=== PATIENT | female | born 1970 ===

== ENCOUNTER 2021-10-06 09:19 | Outpatient (CLI) | payer MEDICARE, MEDICAID, SELFPAY ==
--- NOTE | 2021-10-06 06:00 | DI.RAD_ITS ---
Exam(s) XR PAIN CLINIC FLUORO JOINT IN EXAM: XR PAIN CLINIC FLUORO JOINT IN CLINICAL HISTORY: Dx: Osteoarthritis of the knee TECHNIQUE: 2D and realtime digital imaging was performed. Radiologist not present. CONTRAST MATERIAL: None. COMPARISON: No exams were available for comparison FINDINGS: Fluoroscopy was provided for left knee therapy procedure. See procedure report for details. Cumulative dose: Ka,r=0.90 mGy IMPRESSION: RADIATION DOSE DELIVERED:
[2021-10-06 09:42] VITALS: BP 146/96; PULSE 81; RESP 18; TEMP 37; O2SAT 96
[2021-10-06] MEDS: Lactated Ringers 1,000 ML 80 ML IV (10:14)
[2021-10-06] MEDS: fentaNYL 100 MCG/2 ML VIAL IVP (10:21)
[2021-10-06] MEDS: Midazolam 2 MG/2 ML VIAL IVP (10:22)
[2021-10-06 10:52] VITALS: BP 146/80; PULSE 89; RESP 13; O2SAT 97
[2021-10-06] MEDS: Bupivacaine 0.5% Pres-Free 10 ML VIAL IJ (10:55)
[2021-10-06] MEDS: Lidocaine 2% Pres-Free 5 ML VIAL IJ (10:56)
[2021-10-06] MEDS: methylPREDNISolone ACETATE 40 MG/ML VIAL IJ (10:56)
--- NOTE | 2021-10-06 12:36 | PDOC.PAIN ---
Pain Clinic Procedure Note Procedure Note Procedure Note: LEFT GENICULAR NERVE RADIOFREQUENCY ABLATION WITH THE COOLIEF MACHINE Date of Service: October 06, 2021 Patient: Toya Nettles Provider: Navi Ngo DO, MPH Pre-operative diagnosis: Left knee osteoarthritis Post-operative diagnosis: Same Pre-procedure pain VAS = 9/10. COMMENTS: Previous Genicular nerve block to the LEFT knee at [facility] with Dr. Maxwell on 05/27/21. Toya Nettles has been referred to the [facility] for LEFT genicular nerve radiofrequency ablation. Toya was interviewed and the medical record reviewed. There were no medical, pharmacologic, radiographic or other structural contraindications to attempting fluoroscopically guided LEFT genicular nerve radiofrequency ablation. Risks and potential side effects as well as potential benefit of the procedure were reviewed with Toya Nettles , and her voiced concerns were addressed. After I believed that the patient was completely informed, the printed consent form was signed. Standard time-out procedure was performed. Toya was placed in the supine position on the fluoroscopy table and automated blood pressure cuff and pulse oximeter applied. The skin entry points for approaching LEFT superolateral genicular nerve, the superomedial genicular nerve and the inferomedial genicular was identified under the most advantageous fluoroscopic view and marked. Following thorough Chlorhexadine preparation of the skin and draping, 1% lidocaine infiltration of the skin entry point and subcutaneous tissues was accomplished using a 1.5 25G needle. Next, the 10 cm 18G RF Cannula with a 10 mm active tip was advanced to os at the location of the specific nerve roots (3) using fluoroscopic guidance. Next, sensory and motor testing was performed and no abnormal findings were found. Next, 1 cc of 2% Lidocaine was injected at each site. The lesion was then created with 80 degrees C for 90 seconds. Each needle was advance 1 cm and the lesion was completed again. Each cannula was advanced until the tip reached the posterior aspect of the bone shaft. 1/3 cc of Depomedrol (40 mg/cc) was then injected at each site followed by 2 cc of 0.5% Bupivacaine as the needle was withdrawn. The needles were removed without difficulty. Toya's vital signs were stable throughout the procedure and were as recorded in the docflowsheet by the nursing staff. If given, dosages of intravenous drugs for anxiolysis and analgesia were documented in MAR. Follow up plans and appointments were discussed with the Toya Nettles . Post procedure instruction was given as documented in nursing documentation and having met discharge criteria, Toya was discharged from the [facility]. COMMENTS: No complications. Post-procedure pain VAS = 2/10. Jose WJ1, Valerie SJ, Jaron JG, Cece JG, Emmett BAZAN, Peri PH, Aneesh JW. Radiofrequency treatment relieves chronic knee osteoarthritis pain: a double-blind randomized controlled trial. Pain. 2010;152(3):481-7. doi: 10.1016/j.pain.2010.09.029. Betina S1, Oscar ON2, Ladi Y3, ?zl?lerden P2, Jerson U1, Timothy ?m?rl? I. Which one is more effective for the clinical treatment of chronic pain in knee osteoarthritis: radiofrequency neurotomy of the genicular nerves or intra-articular injection? Int J Rheum Dis. 2016 Apr 28. F/U with our office as needed I personally performed this entire procedure. Navi Ngo DO, MPH Attending Physician [facility]
== END 2021-10-06 09:20 | disposition home or self-care (01) ==
PROVIDERS: PCP Anesthesiology; Visit Provider Preventive Medicine Occupational Medicine
DX: M25.562 Pain in left knee (principal); M17.12 Unilateral primary osteoarthritis, left knee
CPT/HCPCS: 64624; 77002; J1030; J2250; J3010

== ENCOUNTER 2021-12-15 08:27 | Outpatient (CLI) | payer MEDICARE, MEDICAID, SELFPAY ==
--- NOTE | 2021-12-15 06:00 | DI.RAD_ITS ---
Exam(s) XR PAIN CLINIC FLUORO JOINT IN EXAM: XR PAIN CLINIC FLUORO JOINT IN CLINICAL HISTORY: Osteoarthritis of the knee. TECHNIQUE: Fluoroscopy was provided for the referring physician for guidance with performing injecti on procedure. COMPARISON: No exams were available for comparison FINDINGS: Please see procedure note for details. Fluoro time: 60.8 RADIATION DOSE DELIVERED: diana Ashby=5.75 mGy
[2021-12-15 09:05] VITALS: BP 176/88; PULSE 83; RESP 18; TEMP 36; O2SAT 98
[2021-12-15] MEDS: Lactated Ringers 500 ML 30 ML IV (09:40)
[2021-12-15] MEDS: fentaNYL 100 MCG/2 ML VIAL IVP (10:09)
[2021-12-15] MEDS: Midazolam 2 MG/2 ML VIAL IVP (10:10)
[2021-12-15 10:11] VITALS: BP 154/73; PULSE 81; RESP 18; O2SAT 95
--- NOTE | 2021-12-15 10:20 | PDOC.PAIN_ITS ---
Pain Clinic Procedure Note Procedure Note Procedure Note: RIGHT GENICULAR NERVE RADIOFREQUENCY ABLATION WITH THE COOLIEF MACHINE Date of Service: December 15, 2021 Patient: Toya Nettles Provider: Navi Ngo DO, MPH Pre-operative diagnosis: Right knee osteoarthritis Post-operative diagnosis: Same COMMENTS: Previous Genicular nerve block to the RIGHT knee. Toya Nettles has been referred to the [facility] for RIGHT genicular nerve radiofrequency ablation. Toya was interviewed and the medical record reviewed. There were no medical, pharmacologic, radiographic or other structural contraindications to attempting fluoroscopically guided RIGHT genicular nerve radiofrequency ablation. Risks and potential side effects as well as potential benefit of the procedure were reviewed with Toya Nettles, and HER voiced concerns were addressed. After I believed that the patient was completely informed, the printed consent form was signed. Standard time-out procedure was performed. Toya was placed in the supine position on the fluoroscopy table and automated blood pressure cuff and pulse oximeter applied. The skin entry points for approaching RIGHT superolateral genicular nerve, the superomedial genicular nerve and the inferomedial genicular was identified under the most advantageous fluoroscopic view and marked. Following thorough Chlorhexadine preparation of the skin and draping, 1% lidocaine infiltration of the skin entry point and s ubcutaneous tissues was accomplished using a 1.5 25G needle. Next, the 10 cm 18G RF Cannula with a 10 mm active tip was advanced to os at the location of the specific nerve roots (3) using fluoroscopic guidance. Next, sensory and motor testing was performed and no abnormal findings were found. Next, 1 cc of 2% Lidocaine was injected at each site. The lesion was then created with 80 degrees C for 90 seconds. Each needle was advance 1 cm and the lesion was completed again. Each cannula was advanced until the tip reached the posterior aspect of the bone shaft. 1/3 cc of Depomedrol (40 mg/cc) was then injected at each site followed by 2 cc of 0.5% Bupivacaine as the needle was withdrawn. The needles were removed without difficulty. Toya's vital signs were stable throughout the procedure and were as recorded in the docflowsheet by the nursing staff. If given, dosages of intravenous drugs for anxiolysis and analgesia were documented in MAR. Follow up plans and appointments were discussed with the Toya Nettles . Post procedure instruction was given as documented in nursing documentation and having met discharge criteria, Toya was discharged from the [facility]. COMMENTS: No complications. Garcia WJ1, Valerie SJ, Jaron JG, Cece JG, Christine BAZAN, Park PH, Melendrez JW. Radiofrequency treatment relieves chronic knee osteoarthritis pain: a double-blind randomized controlled trial. Pain. 2010;152(3):481-7. doi: 10.1016/j.pain.2010.09.029. Betina S1, Oscar ON2, Ladi Y3, ?zl?mini P2, Jerson U1, Timothy ?m?rl? I. Which one is more effective for the clinical treatment of chronic pain in knee osteoarthritis: radiofrequency neurotomy of the genicular nerves or intra- articular injection? Int J Rheum Dis. 2016 Apr 28. F/U with our office. Post-procedure pain VAS was 0/10. Navi Ngo DO, MPH [facility]
[2021-12-15] MEDS: Lidocaine 2% Pres-Free 5 ML VIAL IJ (10:24)
[2021-12-15] MEDS: Bupivacaine 0.5% Pres-Free 10 ML VIAL IJ (10:24)
[2021-12-15] MEDS: methylPREDNISolone ACETATE 40 MG/ML VIAL IJ (10:25)
== END 2021-12-15 08:28 | disposition home or self-care (01) ==
LOC: PC 08:27
PROVIDERS: PCP Anesthesiology; Visit Provider Preventive Medicine Occupational Medicine
DX: M25.561 Pain in right knee (principal); M17.11 Unilateral primary osteoarthritis, right knee
CPT/HCPCS: 64624; 77002; J1030; J2250; J3010

== ENCOUNTER 2023-08-30 10:27 | Outpatient (CLI) | payer MEDICARE, SELFPAY ==
[2023-08-30 10:48] VITALS: BP 146/85; PULSE 81; RESP 20; TEMP 36.8; O2SAT 98
[2023-08-30] MEDS: fentaNYL 100 MCG/2 ML VIAL IVP ×2 (11:22→11:33)
[2023-08-30] MEDS: Lactated Ringers 500 ML 80 ML IV (11:23)
[2023-08-30] MEDS: Midazolam 2 MG/2 ML VIAL IVP (11:23)
--- NOTE | 2023-08-30 11:46 | DI.RAD_ITS ---
Exam(s) XR PAIN CLINIC FLUORO JOINT IN EXAM: XR PAIN CLINIC FLUORO JOINT IN CLINICAL HISTORY: Dx: Right knee osteoarthritis. TECHNIQUE: Fluoroscopy was provided for the referring physician for guidance with performing pain cl inic injection procedure. COMPARISON: No exams were available for comparison FINDINGS: Please see procedure note for details. Fluoro time: 62.4 seconds RADIATION DOSE DELIVERED: diana Ashby=5.48 mGy
[2023-08-30 11:50] VITALS: BP 150/67; PULSE 61; RESP 18; O2SAT 97
[2023-08-30] MEDS: methylPREDNISolone ACETATE 40 MG/ML VIAL IJ (12:00)
[2023-08-30] MEDS: Bupivacaine 0.5% Pres-Free 10 ML VIAL IJ (12:00)
[2023-08-30] MEDS: Lidocaine 2% Pres-Free 5 ML VIAL IJ (12:01)
--- NOTE | 2023-08-30 12:08 | PDOC.PAIN ---
Date of service: 08/30/23 Time of Service: 12:08 Pain Managment Procedure Note Procedure Note Procedure Note: PROCEDURE NOTE RIGHT GENICULAR NERVE RADIOFREQUENCY ABLATION Date of Service: August 30, 2023 Patient: Toya Nettles Provider: Alhaji Canales DO, MPH Toya Nettles has been referred to the [facility] for Right genicular nerve radiofrequency ablation with the [employer] machine. Pre-operative diagnosis: Pain in right knee M25.561 Post-operative diagnosis: Same Pre-Procedure Pain: VAS=10/10 Comments: Previous genicular nerve blocks and ablation to the Right knee. Her last Genicular nerve ablation on the right lasted approximately 17 months. PROCEDURE: 1. Superolateral genicular branch from the vastus lateralis 2. Superomedial genicular branch from the vastus medialis 3. Inferomedial genicular branch from the saphenous nerve 4. Terminal branch of the nerve vastus intermedius Toya was interviewed and the medical record reviewed. There were no medical, pharmacologic, radiographic or other structural contraindications to attempting fluoroscopically guided Right genicular nerve radiofrequency ablation. Risks and potential side effects as well as potential benefit of the procedure were reviewed with Toya Nettles , and the patient's voiced concerns were addressed. After I believed that the patient was completely informed, the printed consent form was signed. Standard time-out procedure was performed. Toya Nettles was brought into brought to the procedure room and placed on the fluoroscopy table in a comfortable supine position and automated blood pressure cuff and pulse oximeter applied. A grounding pad was placed on the right ankle. The place for needle placement was obtained by manual palpation with radiographic confirmation. The skin entry points for approaching Right superolateral genicular nerve, the superomedial genicular nerve, nerve of the vastus intermedius and the inferomedial genicular was identified under the most advantageous fluoroscopic view and marked. Following thorough Chlorhexadine preparation of the skin and draping, 1% lidocaine infiltration of the skin entry point and subcutaneous tissues was accomplished using a 1.5 25G needle. Next, the 17G 50 mm radiofrequency cannula needle with a 4mm active tip was advanced to os at the location of the specific nerve roots (4) using fluoroscopic guidance. Next, motor testing was performed and no abnormal findings were found. Next, 1 cc of 2% Lidocaine was injected at each site after negative aspiration. The lesion was then created with 80 degrees Celsius for 2 minutes and 30 seconds each. 1/4 cc of Depo-Medrol (40 mg/cc) was then injected at each site followed by 1 cc of 0.5% Bupivacaine as the needle was withdrawn. There was no unusual discomfort expressed by Toya. The needles were withdrawn without difficulty. Toya was observed and was without hemodynamic, neurologic, or allergic reactions.? Fluoroscopic images were digitally archived. Toya's vital signs were stable throughout the procedure and were as recorded in the docflowsheet by the nursing staff. If given, dosages of intravenous drugs for anxiolysis and analgesia were documented in MAR. POST PROCEDURE EVALUATION: IMPRESSION: 1. Medication given is documented in the MAR 2. Follow up plan: Toya to contact [facility] as needed. This procedure may be repeated if the patient achieves at least 50% improvement in pain and/or function for at least 6 months. 3. Estimated Blood Loss: <5ml 4. Fluoroscopy time: Documented in the EMR Follow up plans and appointments were discussed with Toya. Post procedure instruction was given as documented in nursing documentation and having met discharge criteria, Toya was [facility] from the [facility]. COMMENTS: No apparent complications. Post-procedure pain: VAS= 3/10. Garcia WJ1, Valerie SJ, Jaron JG, Cece JG, Emmett BAZAN, Park PH, Aneesh JW. Radiofrequency treatment relieves chronic knee osteoarthritis pain: a double-blind randomized controlled trial. Pain. 2010;152(3):481-7. doi: 10.1016/j.pain.2010.09.029. Betina S1, Oscar ON2, Ladi Y3, ?zl?mini P2, Jerson U1, Timothy ?m?rl? I. Which one is more effective for the clinical treatment of chronic pain in knee osteoarthritis: radiofrequency neurotomy of the genicular nerves or intra-articular injection? Int J Rheum Dis. 2016 Apr 28. I personally completed the entire procedure. ALHAJI CANALES DO, MPH [facility] - Subspecialty board certification in Pain Medicine [facility]
== END 2023-08-30 10:28 | disposition home or self-care (01) ==
LOC: PC 10:28
PROVIDERS: PCP Anesthesiology; Visit Provider Preventive Medicine Occupational Medicine
DX: M17.11 Unilateral primary osteoarthritis, right knee (principal); M25.561 Pain in right knee
CPT/HCPCS: 123; 64624; 77002; 00123; J1030; J2250; J3010